=== PATIENT | male | born 1960 | race Caucasian/White ===

== ENCOUNTER 2020-06-22 01:30 | Inpatient (IN) | payer OTHER, SELFPAY ==
[2020-06-22] VITALS (25 sets, daily range): BP systolic 96–147; BP diastolic 60–109; PULSE 62–128; RESP 12–24; TEMP 36.4–36.8; O2SAT 90–97; BMI 31.8; BMI 29.2
--- NOTE | 2020-06-22 | IR_ITS ---
APPROVED REPORT Patient Location: Inpatient PROCEDURES Left heart catheterization Left ventriculogram Selective coronary angiogram INDICATION New onset cardiomyopathy ejection fraction 35%, Severe mitral regurgitation, Coronary artery disease with coronary artery calcification Informed consent was obtained prior to the procedure. COMPLICATIONS none Estimated Blood Loss: less than 10 mls TECHNIQUE One percent lidocaine used to anesthetize the right anterior aspect of the wrist. The right radial artery was accessed via the Seldinger technique. A 6 Arabic sheath was placed in the right radial artery. 2.5 mg of verapamil, 800 mcg of nitroglycerin, 1mg Lidocaine and 5000 U Heparin were given through the arterial sheath. The [employer] catheter was also used to perform left heart catheterization, left ventriculogram and selective coronary angiogram. At the end of the procedure the sheath was removed good hemostasis was achieved using Traclet band, patient was transferred to the postop holding area in stable condition. ANGIOGRAPHIC RESULTS The left main artery Is a small caliber vessel with no definitive stenosis The left anterior descending artery Has proximal concentric 80% stenosis followed by an additional 80% stenosis immediately adjacent to a large first septal automation test engineer. The mid LAD then has additional 50% stenoses. The circumflex artery Is nondominant and has a proximal concentric 90% stenosis. The first obtuse marginal artery has proximal 80% stenoses while the second obtuse marginal artery has a proximal 70% stenosis The right coronary artery Is dominant and proximally occluded. The distal vessel fills via left to right collaterals The WILLS ventriculogram reveals Dilated ventricle with ejection fraction of 30 to 35% The left ventricular end-diastolic pressure 15 mmHg IMPRESSION Severe to critical three-vessel coronary disease as described above Dilated ventricle with reduced ejection fraction with known severe mitral regurgitation on echocardiogram Borderline elevated LVEDP PLAN 1. Patient requires surgical evaluation for coronary bypass grafting as well as possible mitral valve repair 2. Patient should be transferred [facility] during this hospitalization for surgical evaluation Electronically signed by : Сергей Martino, 06/22/2020 11:26:50
--- NOTE | 2020-06-22 01:47 | XR_ITS ---
PROCEDURE: XR CHEST 2V CLINICAL HISTORY: SOA COMPARISON: CT CT ANGIO CHEST from 06/22/2020 FINDINGS: There is cardiomegaly with mild pulmonary venous congestion consistent with mild CHF. Medium-sized right effusion with right basilar atelectasis or infiltrate. The left lung is clear. There are degenerative changes in the thoracic spine with kyphosis and mild wedging at T6, T7, and T8 IMPRESSION: Mild CHF with medium-sized right effusion and right basilar atelectasis or infiltrate. Dictated by: Lambert Ceja MD 06/22/2020 05:32 Lambert Ceja MD in [place] 06/22/2020 05:32
--- NOTE | 2020-06-22 01:49 | ECG_ITS ---
APPROVED REPORT Exam: Resting ECG HR:121 bpm ECG Measurements Heart Rate 121 AXES HI 136 P 83 QRSd 160 QRS -64 QT 382 T 86 QTc 542 Conclusion Sinus tachycardia with fusion complexes Right bundle branch block Left anterior fascicular block Bifascicular block Left ventricular hypertrophy with repolarization abnormality Abnormal ECG Electronically signed by : Filiberto Callahan, 06/25/2020 11:30:14
[2020-06-22 02:09] LABS: Basophils # 0.1 K/mm3 (0-0.2); Basophils % 0.8 % (0.1-2.0); Eosinophils # 0.1 K/mm3 (0.0-0.4); Eosinophils % 0.6 % (0.1-12.0); Hematocrit 55.8 % (42.0-52.0); Hemoglobin 17.7 g/dL (14.1-18.0); Lymphocytes # 2.3 K/mm3 (0.7-4.5); Lymphocytes % 28.9 % (10-50); Mean Corpuscular HGB Conc 31.7 g/dL (31.8-35.4); Mean Corpuscular Hemoglobin 30.2 pg (27.0-31.2); Mean Corpuscular Volume 95.3 fl (80-94); Mean Platelet Volume 8.7 fl (7.4-10.4); Monocytes # 0.4 K/mm3 (0.1-1.0); Monocytes % 4.6 % (1.7-9.3); Neutrophils # 5.1 K/mm3 (1.8-7.8); Neutrophils % 65.1 % (37.0-80.0); Platelet Count 205 K/mm3 (142-424); Red Blood Count 5.86 M/mm3 (4.60-6.20); Red Cell Distribution Width 13.7 % (11.5-17.5); White Blood Count 7.8 K/mm3 (4.8-10.8)
[2020-06-22 02:11] LABS: Alanine Aminotransferase 59 U/L (12-78); Albumin Level 4.5 g/dl (3.5-5.0); Alkaline Phosphatase 460 U/L (38-126); Anion Gap 16.7 mEq/L (5-15); Aspartate Amino Transferase 62 U/L (17-59); Bilirubin,Total 1.2 mg/dl (0.2-1.3); Blood Urea Nitrogen 23 mg/dl (9-20); Calcium 9.9 mg/dl (8.4-10.2); Carbon Dioxide 27 mmol/L (22.0-30.0); Chloride 91 mmol/L (98-107); Creatinine Clearance Estimated 90 mL/min (50-200); Estimated Glomerular Filt Rate 86 ml/min (>60); GFR (African American) 104 ML/MIN (>60); Globulin 4.6 g/dL (1.3-3.2); Potassium 4.7 mmoL/L (3.5-5.1); Sodium 130 mmol/L (136-145); Total Protein,Serum 9.1 g/dl (6.3-8.2)
--- NOTE | 2020-06-22 02:13 | PC.NURSE ---
Pt placed on 2L at this time
[2020-06-22 02:21] LABS: Glucose 649 mg/dl (74-100); Lactic Acid 3.7 mmol/L (0.7-2.1)
--- NOTE | 2020-06-22 02:22 | PC.NURSE ---
Took critical blood glucose result 649 from Mehdi at this time
[2020-06-22 02:23] LABS: Troponin I 0.03 ng/ml (0.00-0.034)
[2020-06-22 02:39] LABS: Acetone, Serum (Rapid) None Detected (None Detect)
[2020-06-22 02:40] LABS: Microscopic, Urine URINE MICROSCOPIC (MICROSCOPIC)
[2020-06-22 02:41] LABS: Appearance,Urine CLEAR (Clear); Bilirubin,Urine Negative (Negative); Blood, Urine Negative (Negative); Color,Urine YELLOW (Yellow); Glucose,Urine (UA) 3+ (Negative); Ketones,Urine Negative (Negative); Leukocyte Esterase,Urine Negative (Negative); Nitrate,Urine Negative (Negative); PH,Urine 5.5 (5.0-8.5); Protein,Urine Negative (Negative); Urobilinogen,Urine 0.2 EU/dl (0.2)
[2020-06-22 02:54] LABS: Bacteria,Urine Trace /lpf
[2020-06-22 03:09] LABS: NT Pro Brain Natriuretic Pep. 3400 pg/mL (0-125)
[2020-06-22 03:11] LABS: ABG Base Excess 1.5 mmol/L (-2.4-2.3); ABG HCO3 25.7 mmhg (22.0-26.0); ABG Oxygen Saturation 95 % (90-100); ABG PCO2 38.9 mmhg (35.0-45.0); ABG PH 7.44 mmol/L (7.35-7.45); ABG PO2 69.6 mmhg (80-100); ABG TCO2 26.9 mmhg (23-27)
[2020-06-22 03:12] LABS: Allen's Test Acceptable; Source Left Radial
[2020-06-22 03:13] LABS: Oxygen 21 %
--- NOTE | 2020-06-22 03:24 | HMH.EDSOB ---
ED Disposition Clinical Impression: Acute exacerbation of chronic obstructive airways disease, RBBB (right bundle branch block with left anterior fascicular block), Pleural effusion, Elevated brain natriuretic peptide (BNP) level Disposition: Admitted As Inpatient Condition on Discharge: Good Referrals: PCP,No [Primary Care Provider] - - Critical Care Critical Care Time: No Attestation: On 06/22/20, the high probability of a clinically significant, sudden or life threatening deterioration of the following system(s) required my full and direct attention, intervention and personal management. The time I documented below is in addition to time spent performing reported procedures but includes the following listed in this critical care notation. Medical Decision Making - Medical Records Medical records reviewed: Yes: I reviewed the patient's medical records. - Gilberto Inquiry Pt receiving controlled substance: No Vital Signs: 06/22/20 01:41 06/22/20 02:11 06/22/20 02:29 Temperature 97.9 F Temperature Source Oral Pulse Rate [Right Brachial] 128 H 118 H 116 H Respiratory Rate 20 21 24 Blood Pressure [Right Arm] 147/109 H 131/93 H 125/94 H Blood Pressure Mean [Right Arm] 121 105 104 Blood Pressure Source [Right Arm] Automatic Cuff Automatic Cuff Automatic Cuff Blood Pressure Position [Right Arm] Sitting Sitting Sitting 02 Sat by Pulse Oximetry 95 92 L 96 Oxygen Delivery Method Room Air Room Air Nasal Cannula Oxygen Flow Rate (LPM) 2 06/22/20 03:16 Temperature Temperature Source Pulse Rate [Right Brachial] 109 H Respiratory Rate Blood Pressure [Right Arm] 114/85 Blood Pressure Mean [Right Arm] 94 Blood Pressure Source [Right Arm] Automatic Cuff Blood Pressure Position [Right Arm] Sitting 02 Sat by Pulse Oximetry 96 Oxygen Delivery Method Nasal Cannula Oxygen Flow Rate (LPM) 2 - Lab Data Lab results reviewed: Yes: I reviewed the patient's lab results. Lab Results 06/22/20 01:45: WBC 7.8, RBC 5.86, Hgb 17.7, Hct 55.8 H, MCV 95.3 H, MCH 30.2, MCHC 31.7 L, RDW 13.7, Plt Count 205, MPV 8.7, Neut % (Auto) 65.1, Lymph % (Auto) 28.9, [place] % (Auto) 4.6, Eos % (Auto) 0.6, Baso % (Auto) 0.8, Neut # (Auto) 5.1, Lymph # (Auto) 2.3, [place] # (Auto) 0.4, Eos # (Auto) 0.1, Baso # (Auto) 0.1 06/22/20 01:45: Sodium 130 L, Potassium 4.7, Chloride 91 L, Carbon Dioxide 27, Anion Gap 16.7 H, BUN 23 H, Creatinine 0.90, Estimated Creat Clear 90, Estimated GFR 86, Est GFR ( Amer) 104, Glucose 649 H*, Calcium 9.9, Total Bilirubin 1.2, AST 62 H, ALT 59, Alkaline Phosphatase 460 H, Troponin I 0.03, Total Protein 9.1 H, Albumin 4.5, Globulin 4.6 H, Albumin/Globulin Ratio 1.0 L 06/22/20 01:45: Lactate 3.7 H 06/22/20 01:45: Acetone Level None detected 06/22/20 01:45: NT-Pro-B Natriuret Pep 3400 H 06/22/20 01:45: SARS-CoV-2 IgG Ab (Rapid) Positive A, SARS-CoV-2 IgM Ab (Rapid) Negative 06/22/20 02:30: Urine Color Yellow, Urine Appearance Clear, Urine pH 5.5, Ur Specific [place] 1.010, Urine Protein Negative, Urine Glucose (UA) 3+, Urine Ketones Negative, Urine Blood Negative, Urine Nitrate Negative, Urine Bilirubin Negative, Urine Urobilinogen 0.2, Ur Leukocyte Esterase Negative, Urine WBC 3-5, Urine Bacteria Trace 06/22/20 03:07: Specimen Source Left radial, O2 % 21, ABG pH 7.44, ABG pCO2 38.9, ABG pO2 69.6 L, ABG HCO3 25.7, ABG Total CO2 26.9, ABG O2 Saturation 95, ABG Base Excess 1.5, Lambert Test Acceptable Result diagrams: 06/22/20 01:45 06/22/20 01:45 Orders (Tests/Meds): ED MEDICATIONS Generic Name Dose Route Start Last Admin Trade Name Freq PRN Reason Stop Dose Admin Sodium Chloride 1,000 mls @ 999 mls/hr 06/22/20 03:45 06/22/20 03:33 Sod Chlor 0.9% 1000ml Bag IV 06/22/20 04:45 999 mls/hr .Q1H1M CHANTALE Administration Discontinued Medications Generic Name Dose Route Start Last Admin Trade Name Freq PRN Reason Stop Dose Admin Insulin Human Regular 10 unit 06/22/20 03:29 06/22/20 03:31 Insulin Human
--- NOTE | 2020-06-22 03:29 | CT_ITS ---
PROCEDURE: CT ANGIO CHEST CLINCIAL INDICATION: shortness of air Abnormal chest x-ray, smoker COMPARISON: No exams were available for comparison TECHNIQUE: IV Contrast: 70ML OPTIRAY 350 Axial images obtained with sagittal and coronal reformats. All CT scans at the facility use one or more dose reduction, viz: automated exposure control, ma/kV adjustment per patient size (including targeted exams where dose is matched to indication, i.e. head), or iterative reconstruction technique. FINDINGS: Scattered small nodes are present in the mediastinum. There is diffuse coronary artery calcification. No evidence of pulmonary embolus. No evidence of aortic aneurysm. Centrilobular emphysema is present. There is a medium-sized right pleural effusion with moderate compressive atelectasis of the right lower lobe. Cannot exclude superimposed pneumonia. Atelectatic changes are also present in the right upper lobe laterally. There is calcified granuloma in the left upper lobe. Subpleural opacity is present in the left upper lobe posterior laterally. There are degenerative changes in the thoracic spine with kyphosis and mild wedge deformity of the midthoracic spine which appears chronic. IMPRESSION: 1. No evidence of pulmonary embolus. 2. Medium-sized right effusion with compressive atelectasis of the right lower lobe Dictated by: Lambert Ceja MD 06/22/2020 06:01 Lambert Ceja MD in [place] 06/22/2020 06:01
--- NOTE | 2020-06-22 03:30 | PC.NURSE ---
at bedside. called rad for ct
[2020-06-22 03:37] LABS: Coronavirus 19 IgG Antibody Positive (Negative); Coronavirus 19 IgM Antibody Negative (Negative)
--- NOTE | 2020-06-22 04:04 | PC.NURSE ---
return from ct at this time. no acute distress obs at this time
[2020-06-22 04:45] LABS: POC Glucose,Bedside 369 (70-110)
--- NOTE | 2020-06-22 05:22 | PC.NURSE ---
Addendum entered by Sarah Catalan CNA 06/22/20 05:58: CORRECTION CORRECT TIME OF ARRIVAL TO FLOOR WAS 0522 Original Note: PT ARRIVED TO THE FLOOR VIA W/C FROM ED W/STAFF AT 052
[2020-06-22 05:44] LABS: Troponin I 0.03 ng/ml (0.00-0.034)
[2020-06-22 06:02] LABS: Reflex Lactic Add Lactic Reflex
--- NOTE | 2020-06-22 06:21 | PC.NURSE ---
Addendum entered by Sarah Catalan CNA 06/22/20 07:34: CORRECTION Ruben OLIVA NOTIFIED OF CONSULT Original Note: Ruben OVALLE NOTIFIED OF CONSULT
[2020-06-22 06:32] LABS: POC Glucose,Bedside 297 (70-110)
[2020-06-22 07:33] LABS: Chloride 93 mmol/L (98-107); Potassium 4.6 mmoL/L (3.5-5.1); Sodium 132 mmol/L (136-145)
[2020-06-22 07:34] LABS: Basophils % 0.4 % (0.1-2.0); Eosinophils % 0.3 % (0.1-12.0); Hematocrit 49.8 % (42.0-52.0); Lymphocytes # 0.9 K/mm3 (0.7-4.5); Mean Corpuscular HGB Conc 32.2 g/dL (31.8-35.4); Mean Corpuscular Hemoglobin 29.9 pg (27.0-31.2); Mean Platelet Volume 8.3 fl (7.4-10.4); Monocytes # 0.2 K/mm3 (0.1-1.0); Monocytes % 2.8 % (1.7-9.3); Neutrophils # 5.7 K/mm3 (1.8-7.8); Neutrophils % 83.5 % (37.0-80.0); Platelet Count 184 K/mm3 (142-424); Red Blood Count 5.35 M/mm3 (4.60-6.20); White Blood Count 6.8 K/mm3 (4.8-10.8)
[2020-06-22 07:36] LABS: Anion Gap 14.6 mEq/L (5-15); Blood Urea Nitrogen 22 mg/dl (9-20); Carbon Dioxide 29 mmol/L (22.0-30.0); Cholesterol 163 mg/dl (140-200); Creatinine Clearance Estimated 82 mL/min (50-200); Estimated Glomerular Filt Rate 86 ml/min (>60); GFR (African American) 104 ML/MIN (>60); HDL Cholesterol 60 mg/dl (40-60); Magnesium 1.4 mg/dl (1.6-2.3); Triglycerides 71 mg/dl (30-150); VLDL Cholesterol 14 mg/dL (0-40)
[2020-06-22 07:37] LABS: Lactic Acid Follow Up (RFLX 1) 2.8 mmol/L (0.7-2.1)
[2020-06-22 07:47] LABS: Direct LDL Cholesterol 69.77 mg/dL (100-129)
--- NOTE | 2020-06-22 08:00 | CA_ITS ---
APPROVED REPORT EXAM: Comprehensive 2D, Doppler, and color-flow Echocardiogram Graduate Civil Engineer: Huma Coello CRT Ht: 5 ft 3 in Wt: 180lbs BSA: 1.85 BP: 114/85 mmHg Indications: Abnormal ECG, Chest Pain, COPD, Shortness of Breath, Diabetes 2D Dimensions Aortic Root 2.42 cm LVOT 2.07 cm (M/F) 1.5-2.5 M-Mode Dimensions RVDd 3.20 cm (0.9-2.6) LA Diam 4.27 cm (1.9-4.0) LVDd 5.90 cm (3.5-5.7) Ao Diam 3.46 cm (2.0-3.7) LVDs 5.08 cm (3.5-5.7) IVSd 1.12 cm (0.6-1.1) PWd 0.82 cm (0.6-1.1) EF (Teich) 29.20% FS 13.90% EDV (Teich) 173.20 mL ESV (Teich) 122.70 mL LV Diastology E Decel Time 150.00 (160-240 msec) E/A Ratio 0.97 Aortic Valve AO Peak GR. 6.30 mmHg Mitral Valve MV E Max Ananda. 102.00 (40-130 cm/s) MV A Velocity 105.00 (40-130 cm/s) E/A Ratio 0.97 MV Decel. Time 150.00 (160-240 ms) MV PHT 44.00 ms Tricuspid Valve TR P. Velocity 332.00 cm/s RAP Estimate 10.00 mmHg RVSP 54.00 mmHg Left Ventricle Left atrium is moderately enlarged, left ventricle is mildly dilated, severe left ventricular systolic dysfunction, visually estimated ejection fraction 30%, there is marked hypo to akinesis involving the inferior, inferior basal and inferior apical wall. Diastolic parameters are inconclusive. Right Ventricle Right atrium and right ventricle are mildly enlarged with normal contractility. Aortic Valve Aortic valve is minimally thickened and fibrosed, there is no aortic stenosis or aortic insufficiency. Mitral Valve Mitral valve leaflets are minimally thickened, there is no mitral stenosis, there is severe mitral regurgitation. Tricuspid Valve Tricuspid valve is grossly normal, there is moderate tricuspid regurgitation, calculated right ventricular systolic pressure is 50 mmHg. Pulmonic Valve Pulmonic valve is poorly visualized. Great Vessels Aortic root is normal size. Pericardium No significant pericardial effusion noted. Conclusion 1. Biatrial enlargement, dilated left ventricle, severely reduced left ventricular systolic function, visually estimated ejection fraction 30% with multiple segmental wall motion abnormality described above, diastolic parameters are inconclusive. 2. Mildly enlarged right ventricle with normal contractility. 3. Severe mitral and moderate tricuspid regurgitation, calculated right ventricular systolic pressure is 50 mmHg. 4. No significant pericardial effusion noted. Electronically signed by : Jorge Shen, 06/22/2020 17:53:07
[2020-06-22 08:02] LABS: Calcium 8.9 mg/dl (8.4-10.2)
[2020-06-22 08:03] LABS: Glucose 325 mg/dl (74-100)
--- NOTE | 2020-06-22 08:03 | HMH.PHAVTE ---
[facility] Pharmacy VTE Monitoring - Patient Demographics Admission date: 06/22/20 Report Date: 06/22/20 Time: 08:03 Allergies/Adverse Reactions: Patient Allergies Cephalexin Allergy (Unknown, Uncoded 08/14/17 14:31) Height: 1.6 m Weight: 74.899 kg Patient Problems: Current Active Problems Acute exacerbation of chronic obstructive airways disease (Acute) RBBB (right bundle branch block with left anterior fascicular block) (Acute) Pleural effusion (Acute) Elevated brain natriuretic peptide (BNP) level (Acute) - VTE Risk Labs: VTE Related Lab Results Hgb 16.0 g/dL (14.1-18.0) 06/22/20 07:20 Hct 49.8 % (42.0-52.0) 06/22/20 07:20 Plt Count 184 K/mm3 (142-424) 06/22/20 07:20 BUN 22 mg/dl (9-20) H 06/22/20 07:20 Creatinine 0.90 mg/dl (0.66-1.25) 06/22/20 07:20 Estimated Creat Clear 82 mL/min (50-200) 06/22/20 07:20 Was VTE Risk Assessment Performed: Yes VTE Risk Level: Low Risk Clinical Trial Participant: No - Prophylaxis VTE Prophylaxis Ordered?: Yes Types of VTE Prophylaxis: TEDS Knee High
[2020-06-22 08:21] LABS: Troponin I 0.03 ng/ml (0.00-0.034)
--- NOTE | 2020-06-22 09:09 | HMH.HP ---
*Admission Date: 06/22/20 <Taniya Lugo 06/22/20 09:28> *Chief complaint: Shortness of breath <Taniya Lugo 06/22/20 09:28> *History of present illness: Mr. Peralta is a 59-year-old male who has not seen a physician in several years and presented to the emergency room with shortness of breath since March 2020. 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 He denies any previous lung issues. He does not take any medicines. He denies having chest pain. He has had minimal cough and no fever. He denies any other upper respiratory symptoms. In the emergency room he was felt to have exacerbation of chronic obstructive airway disease. EKG was abnormal with a tachycardia, right bundle branch block, left anterior fascicular block, bifascicular block, left ventricular hypertrophy with repolarization abnormality. Echo revealed an ejection fraction of 35%. Lactate was noted to be 3.7 and BNP was elevated at 3400. SARS Covid IgG Was positive and IgM was negative. Blood sugar was found to be elevated at 649. Troponin I was 0.03x2. Liver function studies were also elevated. Urinalysis did reveal 3+ glucose. Acetone was negative. Cultures are pending. Patient did receive a liter of IV fluids in the emergency room. He was also given 10 units of regular insulin. With evaluation he had a CT of the chest Which revealed negative for pulmonary embolism and a large right pleural effusion with consolidation of the right lower lobe with a possible pneumonia. He was then admitted for further evaluation and treatment with pulmonology and cardiac consultations. This a.m. at time of exam patient states he is feeling better. He states his breathing is normal. He denies chest pain. He is anxious to go home. <LugoLindseyTaniya 06/22/20 09:28> [facility] History Medical History: Denies:: Cancer, Chronic Obstructive Pulmonary Disease (COPD), Diabetes Mellitus Type 2, MRSA <Taniya Lugo 06/22/20 09:28> *Have you ever received a pneumonia vaccine?: No <Taniya Lugo 06/22/20 09:28> *Have you received a flu vaccine this season?: No <Taniya Lugo 06/22/20 09:28> Laterality Cases: Right: Other <LugoTaniya Padmini 06/22/20 09:28> Other Surgeries: Yes: Cholecystectomy <ParishTaniya - 06/22/20 09:28> Amputation: No <Lugo,Taniya 06/22/20 09:28> - *Social History Last grade of school completed: 11th or 12th <Lugo,Taniya 06/22/20 09:28> Smoking Status: Current every day smoker <Taniya Lugo 06/22/20 09:28> Tobacco Type: cigarettes <Lugo,Taniya - 06/22/20 09:28> # Packs/Day (cigarettes): 1 <ParishTaniya - 06/22/20 09:28> Alcohol Intake: former <Taniya Lugo 06/22/20 09:28> Substance Use Type: marijuana, painkillers, prescription drug <ParishTaniya 06/22/20 09:28> *Occupational Status:: retired <ParishTaniya 06/22/20 09:28> *Travel in the last 8 weeks: None <LugoTaniya hall 06/22/20 09:28> Family Hx:: Stroke <Taniya Lugo 06/22/20 09:28> Review of Systems - Constitutional Denies fever(s) <Taniya Lugo 06/22/20 09:28> - Eyes Denies change in vision <Taniya Lugo 06/22/20 09:28> - ENT Denies ear pain, Denies nasal congestion, Denies post nasal drip, Denies sore throat <Taniya Lugo 06/22/20 09:28> - *Cardiovascular Reports shortness of breath, Denies chest pain <Taniya Lugo 06/22/20 09:28> - *Respiratory Denies chest congestion, Denies cough, Denies shortness of breath <Taniya Lugo 06/22/20 09:28> - *Gastrointestinal Denies abdominal pain, Denies change in bowel habits, Denies nausea, Denies vomiting <Taniya Lugo 06/22/20 09:28> - *Genitourinary Denies difficulty urinating <Taniya Lugo 06/22/20 09:28> - *Musculoskeletal Denies abnormal walking <Taniya Lugo - 06/22/20 09:28> - *Neurologic Denies abnormal walking, Denies dizziness, Denies localized weakness <Taniya Lugo - 06/22/20 09:28> Meds Home
--- NOTE | 2020-06-22 09:18 | HMH.CNCARD ---
History of Present Illness Consult date: 06/22/20 Requesting physician: Morteza Membreno Consult reason: shortness of breath Chief complaint: SOA, CHF Additional Medical History:: 1. Former alcohol use, discontinued 2006 2. Shortness of breath with congestive heart failure, 06/21/2020 A. BNP 3400 B. Preliminary echocardiogram shows EF 35% with severe MR and RVSP of 54 mmHg 3. Diabetes mellitus, newly diagnosed, 06/21/2020 with blood sugar greater than 600 4. Family history of valvular heart disease, sister on the operating table at 61 yoa 5. Continued tobacco use, x30+ years 6. Abnormal EKG with bifascicular block (right bundle branch block, left anterior fascicular block) 7. Cardiomyopathy with ejection fraction approximately 35%, 06/22/2020 8. Severe mitral regurgitation by echocardiogram, 06/22/2020 History of present illness: Mr. Peralta is a 59-year-old male who has not seen a physician in several years and presented to the emergency room with shortness of breath since March 2020. He states his breathing became worse last 3 to 4 days and blames it on inhalation of welding results. He denies any previous lung issues. He does not take any medicines. He denies having chest pain. He has had minimal cough and no fever. He denies any other upper respiratory symptoms. The above per Taniya Lugo APRN, with Dr. Membreno. Patient relates having to put his in a long-term approximately 3 months ago which has caused significant distress to him. He has been unable to see her as much as he wanted due to the Covid pandemic restrictions. 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 He denies any significant chest pain but does relate a fullness or pressure type sensation intermittently since then. Preliminary echocardiogram today shows ejection fraction of approximately 30-35% with severe mitral regurgitation and moderate to severe tricuspid regurgitation with elevated right ventricular systolic pressure 54 mmHg. EKG shows sinus tachycardia to 121 bpm with right bundle branch block and left anterior fascicular block with suspected LVH with repolarization ST-T abnormalities. [facility] History Medical History: Denies:: Cancer, MRSA *Have you ever received a pneumonia vaccine?: No *Have you received a flu vaccine this season?: No Laterality Cases: Right: Other Other Surgeries: Yes: Cholecystectomy Amputation: No - *Social History Last grade of school completed: 11th or 12th Smoking Status: Current every day smoker Tobacco Type: cigarettes # Packs/Day (cigarettes): 1 Alcohol Intake: former Substance Use Type: marijuana, painkillers, prescription drug *Occupational Status:: retired *Travel in the last 8 weeks: None Family Hx:: Stroke Meds Home Medications Medication Instructions Recorded Confirmed Type Aspirin [Adult Aspirin Regimen] 81 mg PO DAILY 06/22/20 06/22/20 History Allergies Allergy/AdvReac Type Severity Reaction Status Date / Time Cephalosporins Allergy Unknown Unknown Verified 06/22/20 09:50 allergy reaction Exam Vital signs and Labs for Last 24 Hours: Temp Pulse Resp BP Pulse Ox 98.2 F 111 H 18 114/77 96 06/22/20 07:52 06/22/20 07:52 06/22/20 08:00 06/22/20 07:52 06/22/20 07:52 Laboratory Results - last 24 hr 06/22/20 01:45: WBC 7.8, RBC 5.86, Hgb 17.7, Hct 55.8 H, MCV 95.3 H, MCH 30.2, MCHC 31.7 L, RDW 13.7, Plt Count 205, MPV 8.7, Neut % (Auto) 65.1, Lymph % (Auto) 28.9, [place] % (Auto) 4.6, Eos % (Auto) 0.6, Baso % (Auto) 0.8, Neut # (Auto) 5.1, Lymph # (Auto) 2.3, [place] # (Auto) 0.4, Eos # (Auto) 0.1, Baso # (Auto) 0.1 06/22/20 01:45: Sodium 130 L, Potassium 4.7, Chloride 91 L, Carbon Dioxide 27, Anion Gap 16.7 H, BUN 23 H, Creatinine 0.90, Estimated Creat Clear 90, Estimated GFR 86, Est GFR ( Amer) 104, Glucose 649 H*,
[2020-06-22 09:26] LABS: Reflex Lactic (2 hrs) Add Lactic Reflex
--- NOTE | 2020-06-22 09:57 | HMH.PULMCON ---
*Admission Date: 06/22/20 *Reason for consult:: Pleural effusion *History of present illness: Mr. Peralta is a pleasant 59-year-old male, have not seen a doctor in the recent past, significant smoking history more than 30 pack today is currently smoking 1 pack a day, clear lower extremity swelling orthopnea and PND was presented to the hospital complaining of Worsening exertional dyspnea along with productive cough. He denies any subjective fevers or any chills. On admission patient was also found to have a right-sided effusion and pulmonary was called for further management [facility] History Medical History: Denies:: Cancer, Chronic Obstructive Pulmonary Disease (COPD), Diabetes Mellitus Type 2, MRSA *Have you ever received a pneumonia vaccine?: No *Have you received a flu vaccine this season?: No Laterality Cases: Right: Other Other Surgeries: Yes: Cholecystectomy Amputation: No - *Social History Last grade of school completed: 11th or 12th Smoking Status: Current every day smoker Tobacco Type: cigarettes # Packs/Day (cigarettes): 1 Alcohol Intake: former Substance Use Type: marijuana, painkillers, prescription drug *Occupational Status:: retired *Travel in the last 8 weeks: None Family Hx:: Stroke ROS - Cons Denies chills, Denies fatigue, Denies fever(s), Denies poor appetite, Denies weight loss - Eyes Denies dry eyes, Denies sensitivity to light - ENT Denies dizziness, Denies facial pain, Denies pain with swallowing, Denies tongue swelling - Card Reports shortness of breath with activity, Reports leg swelling - Resp Respiratory: Yes shortness of breath, Yes change in phlegm color, Yes cough, Yes dyspnea, Yes dyspnea on exertion, Yes excessive phlegm production, No coughing up blood, No pain on inspiration, No pain with cough, Yes cough with sputum production, No pain with breathing, No stridor - GI Gastrointestingal: Denies: abdominal pain, dysphagia, nausea, reflux, vomiting - [place] Musculoskeletal: Denies neck pain, Denies small joint pain in the hands - Psych Denies confusion, Denies depression Meds Home Medications Medication Instructions Recorded Confirmed Type Aspirin [Adult Aspirin Regimen] 81 mg PO DAILY 06/22/20 06/22/20 History Allergies Allergy/AdvReac Type Severity Reaction Status Date / Time Cephalosporins Allergy Unknown Unknown Verified 06/22/20 09:50 allergy reaction Exam Radiology reports for Last 24 Hours: CT chest showed left upper lobe granuloma and left upper lobe pleural-based airspace disease of 1x[address] also showed right-sided pleural effusion along with associated atelectasis, however cannot rule out pneumonia - Constitutional Constitutional:: no acute distress, comfortable, healthy appearing, cooperative - HENMT Exam HENMT: normocephalic, atraumatic, head normal to inspection, face & sinuses non-tender, oral mucosa normal, moist mucous membranes, posterior oropharanx norm - Eye Exam Eyes:: normal appearance both eyes and related structures, eyelids normal, normal conjunctiva, normal sclera - Neck Exam Neck:: normal visual inspection, thyroid normal, no lymphadenopathy - Respiratory Exam Respiratory:: able to speak in complete sentences, normal respiratory effort, crackles - Cardiovascular Exam Cardiac:: regular rhythm, edema Comments: Holosystolic murmur heard - GI Exam GI:: soft, no hepatosplenomegaly, normal to inspection, normoactive bowel sounds, no tenderness - Skin Exam Skin: no rash, normal elastacity, no lesions, normal turgor - Neurological Exam Neurological: alert, awake, oriented X3 - Extremities Exam Extremities: no cyanosis, no clubbing Comments: Bilateral symmetric lower extremity 3+ edema noted - Psychiatric Exam Psychiatric: normal affect, appearance grossly normal, affect normal, attitude normal, no homicidal ideation, no suicidal ideation Internal Medicine - CN: Reslt - Labs CBC & Chem 7: 06/22/20 07:2
[2020-06-22 10:36] LABS: Lactate Dehydrogenase 217 U/L (313-618)
[2020-06-22 10:55] LABS: Hemoglobin A1C > 14.0 % (4.0-6.0)
--- NOTE | 2020-06-22 11:47 | PC.NURSE ---
RECEIVED REPORT FROM RAYNA CARRION IN [facility].
[2020-06-22 16:04] LABS: POC Glucose,Bedside 250 (70-110)
--- NOTE | 2020-06-22 18:44 | PC.NURSE ---
1630 - REPORT CALLED TO MAGY @ [facility] 1637 - [facility] NOTIFIED OF TRANSFER. [facility] STATES THEY HAVE A TRUCK OUT AND WILL BE THERE SOON TRUCK AVAILABLE. 1736 - PT LEFT VIA [facility] W/ [facility] @ THIS TIME. IS NEURO INTACT, ON 2 L O2 PER NC, #20 PATENT IN LAC. 1738 - [facility] ([facility]OTHER) NOTIFIED THAT PT HAS LEFT.
--- NOTE | 2020-06-23 19:37 | HMH.DCSUM ---
General - General Admission date:: 06/22/20 Discharge date: 06/22/20 HPI HPI: Mr. Peralta is a 59-year-old male who has not seen a physician in several years and presented to the emergency room with shortness of breath since March 2020. 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 He denies any previous lung issues. He does not take any medicines. He denies having chest pain. He has had minimal cough and no fever. He denies any other upper respiratory symptoms. In the emergency room he was felt to have exacerbation of chronic obstructive airway disease. EKG was abnormal with a tachycardia, right bundle branch block, left anterior fascicular block, bifascicular block, left ventricular hypertrophy with repolarization abnormality. Echo revealed an ejection fraction of 35%. Lactate was noted to be 3.7 and BNP was elevated at 3400. SARS Covid IgG Was positive and IgM was negative. Blood sugar was found to be elevated at 649. Troponin I was 0.03x2. Liver function studies were also elevated. Urinalysis did reveal 3+ glucose. Acetone was negative. Cultures were pending. Patient did receive a liter of IV fluids in the emergency room. He was also given 10 units of regular insulin. With evaluation he had a CT of the chest Which revealed negative for pulmonary embolism and a large right pleural effusion with consolidation of the right lower lobe with a possible pneumonia. He was then admitted for further evaluation and treatment with pulmonology and cardiac consultations. This a.m. at time of exam patient states he is feeling better. He states his breathing is normal. He denies chest pain. He is anxious to go home. Hospital Course Hospital Course: Patient was seen by cardiology and the following noted: Echo showed an ejection fraction of approximately 30 to 35% with severe mitral regurgitation and moderate to severe tricuspid regurgitation with elevated right ventricular systolic pressure at 54 mmHg. EKG was showing a sinus tach at 125 bpm with right bundle branch block and other abnormalities. Immediate plan was for patient to have left heart cath. Left heart cath results: ANGIOGRAPHIC RESULTS The left main artery Is a small caliber vessel with no definitive stenosis The left anterior descending artery Has proximal concentric 80% stenosis followed by an additional 80% stenosis immediately adjacent to a large first septal performance reporter. The mid LAD then has additional 50% stenoses. The circumflex artery Is nondominant and has a proximal concentric 90% stenosis. The first obtuse marginal artery has proximal 80% stenoses while the second obtuse marginal artery has a proximal 70% stenosis The right coronary artery Is dominant and proximally occluded. The distal vessel fills via left to right collaterals The WILLS ventriculogram reveals Dilated ventricle with ejection fraction of 30 to 35% The left ventricular end-diastolic pressure 15 mmHg IMPRESSION Severe to critical three-vessel coronary disease as described above Dilated ventricle with reduced ejection fraction with known severe mitral regurgitation on echocardiogram Borderline elevated LVEDP PLAN 1. Patient requires surgical evaluation for coronary bypass grafting as well as possible mitral valve repair 2. Patient should be transferred [facility] during this hospitalization for surgical evaluation Patient also was seen by pulmonology in the AM who felt that the patient could have an underlying pneumonia. He recommended to continue with the Levaquin with duo nebs with possible thoracentesis for the right sided effusion. Patient was noted to have a BS >600 on admission with an A1C > 14 indicating a new onset of DM. See data for other test results. Bed was obtained at the [facility]. Patient was transferred in the PM of 06/22/2020 to per ambulance with EMS for cardiac furt
== END 2020-06-22 17:36 | disposition home or self-care (01) | DRG 190 ==
LOC: ER 04:29 → 2ND 09:44
PROVIDERS: Internal Medicine; Internal Medicine Pulmonary Disease; Nurse Practitioner Family; Admitting Provider Family Medicine; Emergency Provider Emergency Medicine; Visit Provider Family Medicine
PROC: 4A023N7 Measurement of Cardiac Sampling and Pressure, Left Heart, Percutaneous Approach (ICD-10-PCS; principal; 2020-06-22 13:00)
DX: J44.0 Chronic obstructive pulmonary disease with (acute) lower respiratory infection (principal); J18.9 Pneumonia, unspecified organism; I45.2 Bifascicular block; I42.9 Cardiomyopathy, unspecified; J90 Pleural effusion, not elsewhere classified; Z86.19 Personal history of other infectious and parasitic diseases; Z72.0 Tobacco use; I08.1 Rheumatic disorders of both mitral and tricuspid valves; I45.10 Unspecified right bundle-branch block; I25.10 Atherosclerotic heart disease of native coronary artery without angina pectoris; I25.84 Coronary atherosclerosis due to calcified coronary lesion
CPT/HCPCS: 36415; 71046; 71275; 80048; 80053; 80061; 81001; 82009; 82803; 82962; 83036; 83605; 83615; 83735; 83880; 84484; 85025; 86328; 87040; 93005; 93306; 93458; 96365; 96366; 96375; 99152; 99284; C1769; G0378; J1644; J1956; Q9967